=== PATIENT | male | born 1935 | race African-American/Black ===

== ENCOUNTER 2018-11-14 14:36 | Emergency (ER) | payer OTHER, MEDICAID ==
[~2018-11-14] VITALS: Ht 182.9 cm; Wt 81.6 kg
--- NOTE | 2018-11-14 14:36 | NUR ---
ED Nurse Note: Patient walked into ED from home c/o lower back pain for 2 days. patient denies injury, reports that "pain just started when I was lying on the bed." Patient is alert awake x4 ambulatory. breathing unlabored and even.
[2018-11-14] MEDS ORDERED: Tylenol #3 tab (300mg/30mg) ORAL ONE (15:15)
[2018-11-14 15:30] VITALS: BP 167/81
--- NOTE | 2018-11-14 15:31 | Emergency Room Report ---
History of Present Illness General Chief Complaint: Back Pain-No Injury Source: Patient Present Illness HPI 82-year-old male presents to the emergency department complaining of 8 out of 10 in severity low back pain 2 days. Patient reports somewhat of a progressive onset he denies specific trauma or fall. Patient denies recent strenuous activities.Denies numbness tingling or loss of sensation or gross motor movements of the extremities, incontinence of bowel or bladder. Denies CP , Palpitations, LOC, AMS, dizziness, Changes in Vision, weakness or a sudden severe headache. He reports that many years ago he had back pain in the same area which required him to take pain medication regularly but then it went away on its own and he has not had it for years. Denies recent spinal procedures or history of cancer. Patient denies night sweats. He denies abdominal pain, nausea, or vomiting. Allergies: Coded Allergies: No Known Allergies (Verified Allergy, Unknown, 05/15/10) Patient History Past Medical History: see triage record Past Surgical History: none Pertinent Family History: none Reviewed Nursing Documentation: PMH: Agreed; PSxH: Agreed Nursing Documentation-PMH Past Medical History: No History, Except For Hx Cardiac Problems: Yes Review of Systems All Other Systems: negative except mentioned in HPI Physical Exam Vital Signs Date Time Temp Pulse Resp B/P (MAP) Pulse Ox O2 Delivery O2 Flow Rate FiO2 11/14/18 14:47 98.2 70 21 167/81 93 Room Air Sp02 EP Interpretation: reviewed, normal General Appearance: no apparent distress, alert, GCS 15, non-toxic Head: normocephalic, atraumatic Eyes: bilateral eye normal inspection, bilateral eye PERRL ENT: hearing grossly normal, normal voice Neck: full range of motion Respiratory: chest non-tender, lungs clear, normal breath sounds, no respiratory distress, no wheezing, speaking full sentences Cardiovascular #1: regular rate, rhythm Gastrointestinal: non tender, soft Genitourinary: normal inspection, no CVA tenderness Musculoskeletal: back normal, gait/station normal, normal range of motion, tender - TTP to the midline lumbar area and right paraspinal area, no step-off or obvious deformity. Neurologic: alert, oriented x3, responsive, motor strength/tone normal, sensory intact, normal gait, speech normal, grossly normal Psychiatric: judgement/insight normal Skin: normal color, no rash, warm/dry, well hydrated Medical Decision Making PA Attestation Dr. Turcios is my supervising Physician whom patient management has been discussed with. Diagnostic Impression: Primary Impression: Back pain Qualified Codes: M54.5 - Low back pain ER Course 82-year-old male presents to the emergency department complaining of 8 out of 10 in severity low back pain 2 days. Patient reports somewhat of a progressive onset he denies specific trauma or fall. Patient denies recent strenuous activities.Denies numbness tingling or loss of sensation or gross motor movements of the extremities, incontinence of bowel or bladder. Denies CP , Palpitations, LOC, AMS, dizziness, Changes in Vision, weakness or a sudden severe headache. He reports that many years ago he had back pain in the same area which required him to take pain medication regularly but then it went away on its own and he has not had it for years. Denies recent spinal procedures or history of cancer. Patient denies night sweats. He denies abdominal pain, nausea, or vomiting. Ddx considered: epidural abscess, fracture, sprain/strain, meningitis, spinal chord injury, sciatica, cauda equina, Pyelonephritis, renal calculi just to name a few. Vital signs reviewed and are WNL during ED visit. Pt. is afebrile with no signs of infection No new symptoms, and denies recent trauma. No saddle anesthesia noted, Pt. denies incontinence Neurovascular is intact ROM is limited due to pain * Mild Tenderness to palpation to the right paraspinal muscles of the lower back with midline tenderness. *Pt. describes pain today as moderate and radiates across the lower back. ORDERS: L-Spine X-ray INTERVENTIONS: -Tylenol # 3 - Lidoderm TP -I do not identify an emergent condition at this time. With current presentation , pt. is stable for close outpatient follow up and conservative treatment. D/ w pt. to return promptly to ED with worsening or new symptoms.- Pt. verbalizes' understanding and agreement with proposed treatment plan. DISCHARGE: At this time pt. is stable for d/c to home. Will provide printed patient care instructions, and any necessary prescriptions. Care plan and follow up instructions have been discussed with the patient prior to discharge. Other X-Ray Diagnostic Results Other X-Ray Diagnostic Results : X-Ray ordered: L-Spine # of Views/Limited Vs Complete: 3 View Indication: Pain EP Interpretation: Yes LILIAN Xray: Interpretation reviewed, by supervising MD, and agrees with findings. Interpretation: no dislocation, no soft tissue swelling, no fractures Impression: No acute disease Electronically Signed by: Nelida Coombs PA-C Last Vital Signs Date Time Temp Pulse Resp B/P (MAP) Pulse Ox O2 Delivery O2 Flow Rate FiO2 11/14/18 14:47 98.2 70 21 167/81 93 Room Air Status: improved Disposition: HOME, SELF-CARE Condition: Stable Scripts Lidocaine (Lidoderm) 1 Each Adh..patch 1 PATCH TOPIC DAILY, #30 PATCH 0 Refills Patch(es) may remain in place for up to 12 hours in any 24-hour period. Prov: Nelida Coombs 11/14/18 Acetaminophen With Codeine (T#3) (TYLENOL #3 TAB*) Y Tab 1 TAB ORAL Q6H PRN for For Pain, #12 TAB Prov: Nelida Coombs 11/14/18 Patient Instructions: Back Pain, Adult Additional Instructions: Take medications as directed. Follow up with a Primary Care Provider in 3-5 days, even if your symptoms have resolved. --Please review list of primary care clinics, if you do not already have a primary care provider Return sooner to ED if new symptoms occur, or current symptoms become worse. Do not drink alcohol, drive, or operate heavy machinery while taking Robaxin ( Muscle Relaxers) as this may cause drowsiness. - Please note that this Emergency Department Report was dictated using [employer] reader technology software, occasionally this can lead to erroneous entry secondary to interpretation by the dictation equipment. Nelida Coombs Nov 14, 2018 15:31
--- NOTE | 2018-11-14 15:32 | NUR ---
ED Nurse Note: patient went for xray
--- NOTE | 2018-11-14 16:15 | Diagnostic Imaging Report ---
Indication: Low back pain Technique: 3 views of the lumbar spine Comparison: None Findings:There is mild lumbar levoscoliotic deformity. Bony alignment is otherwise normal. Vertebral body heights are preserved. Disc spaces are preserved except for minimal degenerative narrowing at L5-S1. No acute fractures. No dislocations. Pedicles are intact. Sacroiliac joint spaces are preserved. Sacral arches are preserved. Impression: No acute process Minimal degenerative changes at L5-S1 Minimal scoliosis
[2018-11-14] MEDS ORDERED: LIDODERM700 M1 TOPIC (16:17)
[2018-11-14] MEDS ORDERED: ACETAMINOPHEN-1 EAC1 ORAL (16:17)
[2018-11-14 16:25] VITALS: BP 162/79
--- NOTE | 2018-11-14 16:26 | NUR ---
ER DISCHARGE NOTE: Patient is cleared to be discharged per ERMD, pt is aox4, on room air, with stable vital signs. pt was given dc and prescription instructions, pt was able to verbalize understanding, pt id band removed without complications. pt is able to ambulate with steady gait. pt took all belongings.
== END 2018-11-14 16:26 | disposition home or self-care (01) ==
LOC: EMR 15:15
DX: M54.5 Low back pain (principal)
CPT/HCPCS: 72020; 99283